=== PATIENT | female | born 1995 | race African-American/Black ===

== ENCOUNTER 2018-11-06 10:05 | Emergency (ER) | payer SELFPAY ==
[~2018-11-06] VITALS: Ht 177.8 cm; Wt 72.0 kg
[2018-11-06 14:05] VITALS: BP 113/69
== END 2018-11-06 13:00 | disposition home or self-care (01) ==
LOC: ER 10:05
DX: R07.89 Other chest pain (principal); I50.9 Heart failure, unspecified; I42.9 Cardiomyopathy, unspecified; I73.00 Raynaud's syndrome without gangrene; Z86.718 Personal history of other venous thrombosis and embolism; Z95.810 Presence of automatic (implantable) cardiac defibrillator
CPT/HCPCS: 71046; 81025; 93005; 99283